=== PATIENT | female | born 2000 | race Caucasian/White ===

== ENCOUNTER 2020-03-17 11:59 | Day surgery (SDC) | payer BC, MEDICAID ==
[~2020-03-17] VITALS: Ht 167.6 cm; Wt 59.2 kg
[2020-03-17] VITALS (9 sets, daily range): BP systolic 85–100; BP diastolic 42–62
[2020-03-17] MEDS ORDERED: normal saline 1000ml 1,000 ML IV SCH (12:15)
[2020-03-17 13:22] LABS: BASOPHILS % (AUTO) 0.7 % (0-1); EOSINOPHILS # (AUTO) 0.1 X10'3 (0-0.9); HEMATOCRIT 42.2 % (35.0-45.0); HEMOGLOBIN 14.7 g/dl (12.0-16.0); LYMPHOCYTES # (AUTO) 1.6 X10'3 (1.1-4.8); MEAN CORPUSCULAR HEMOGLOBIN 31.1 PG (27.0-31.0); MEAN CORPUSCULAR HGB CONC 34.8 g/dL (33.0-36.5); MEAN CORPUSCULAR VOLUME 89.4 FL (78-98); MEAN PLATELET VOLUME 7.6 FL (7.4-10.4); MONOCYTES # (AUTO) 0.4 X10'3 (0-0.9); MONOCYTES % (AUTO) 6.6 % (2-12); NEUTROPHILS # (AUTO) 4.3 X10'3 (1.8-7.7); NEUTROPHILS % (AUTO) 66.7 % (42-75); PLATELET COUNT 223 X10'3 (140-440); RED BLOOD COUNT 4.72 X10'6 (4.20-5.60); RED CELL DISTRIBUTION WIDTH 12.8 % (11.5-14.5); WHITE BLOOD COUNT 6.4 X10'3 (4.5-11.0)
[2020-03-17 13:28] LABS: ALBUMIN 4.6 G/DL (3.4-5.0); ANION GAP 10 (8-16); BLOOD UREA NITROGEN 10 MG/DL (7-18); BUN/CREATININE RATIO 13.5 (6.6-38.0); CALCIUM 10.1 MG/DL (8.5-10.1); CHLORIDE 106 MMOL/L (99-107); CREATININE 0.74 MG/DL (0.40-0.90); GLUCOSE 88 MG/DL (70-104); MAGNESIUM 1.9 MG/DL (1.5-2.4); POTASSIUM 3.9 MMOL/L (3.5-5.1); SODIUM 141 MMOL/L (135-145); TOTAL CARBON DIOXIDE 24.8 MMOL/L (24-32); eGFR > 90 ML/MIN
[2020-03-17] MEDS ORDERED: vancomycin 1,000mg inj ONE (13:39)
[2020-03-17] MEDS ORDERED: proCHLORperazine 10 MG/2 ml inj ONE (13:39)
[2020-03-17] MEDS ORDERED: fentaNYL/PF 50MCG/1 ML 2ML syringe ONE ×2 (13:39→14:02)
[2020-03-17] MEDS ORDERED: midazolam 2 mg/2 ml injection ONE ×4 (13:39→14:44)
[2020-03-17] MEDS ORDERED: ceFAZolin 1000mg inj ONE (13:40)
[2020-03-17] MEDS ORDERED: LIDOcaine 1% W/epiNEPHrine 1:100,000 20ml vial ONE ×2 (13:40→14:12)
[2020-03-17] MEDS ORDERED: metoprolol tartrate 1mg/ml inj IV ONE ×3 (14:26→14:43)
== END 2020-03-17 17:30 | disposition home or self-care (01) ==
LOC: SSTAY O 11:59 → MED 3N 12:05 → SSTAY O 17:30
PROVIDERS: ATTEND Internal Medicine Cardiovascular Disease
DX: I44.2 Atrioventricular block, complete (principal); Z72.89 Other problems related to lifestyle
CPT/HCPCS: 33208; 36415; 71045; 80048; 83735; 85025; 85610; 93005; 99152; 99153; C1785; C1894; C1898; J0690; J0780; J2250; J3010; J3370; J7030; A4565; A4620; J3490

== ENCOUNTER 2024-07-08 16:15 | Outpatient (CLI) | payer MEDICAID | END 2024-07-08 23:59 | disposition home or self-care (01) | LOC: RAD 16:15 | PROVIDERS: ATTEND Family Medicine | DX: O09.291 Supervision of pregnancy with other poor reproductive or obstetric history, first trimester (principal); N91.2 Amenorrhea, unspecified; Z3A.01 Less than 8 weeks gestation of pregnancy | CPT/HCPCS: 76801 ==

== ENCOUNTER 2025-05-06 10:53 | Day surgery (SDC) | payer MEDICAID ==
[2025-05-06] VITALS (11 sets, daily range): BP systolic 104–119; BP diastolic 60–75; PULSE 59–91; RESP 9–16; TEMP 98.6; O2SAT 98–100
[~2025-05-06] VITALS: Ht 170.2 cm; Wt 98.4 kg
[~2025-05-06 10:53] MED LIST: ACET-1008 PO; OMEP20CA16 PO; PRENATAL VITAMIN PO; famotidine 20mg tablet PO ONE; ringers solution, lacted 1,000 ML IV SCH
[2025-05-06] MEDS ORDERED: cloNIDine hcl/PF 100mcg/ml inj ONE (11:48)
[2025-05-06] MEDS: ceFAZolin 2gm/dext,iso 50mL 50 ML IV ONE (11:48)
[2025-05-06] MEDS ORDERED: HYDROmorphone/PF 0.2 MG/ML SYRINGE IV PRN ×2 (11:50)
[2025-05-06] MEDS ORDERED: morphine 2 MG/ML inj. syringe IV PRN (11:50)
[2025-05-06] MEDS ORDERED: morphine 4 MG/ML inj SYRINge IV PRN (11:50)
[2025-05-06] MEDS ORDERED: meperidine/PF 25mg/ml syringe IV PRN (11:50)
[2025-05-06] MEDS ORDERED: proCHLORperazine 10 MG/2 ml inj IV PRN (11:50)
[2025-05-06] MEDS ORDERED: ondansetron/PF 4mg/2ml inj IV PRN (11:50)
[2025-05-06] MEDS ORDERED: hydrALAZINE 20mg/ml inj. IV PRN (11:50)
[2025-05-06] MEDS ORDERED: labetalol 20mg/4ml (5mg/ml) syringe IV PRN (11:50)
[2025-05-06] MEDS ORDERED: bacitracin 15gm ointment TP ONE (11:58)
[2025-05-06] MEDS ORDERED: BUPIVAcaine 2.5mg/ml inj 50ml vial (contains preservative) ONE (11:58)
[2025-05-06 12:06] LABS: HCG SERUM QL NEGATIVE
[2025-05-06] MEDS ORDERED: midazolam 1 mg/ML 2ml injection ONE (13:34)
[2025-05-06] MEDS ORDERED: LIDOcaine 2% (20mg/ml) 5ml vial ONE (14:02)
[2025-05-06] MEDS ORDERED: 0.9 % SODIUM CHLORIDE 10 ML VIAL ONE (14:02)
[2025-05-06] MEDS ORDERED: propofol inj 20 ML IV ONE (14:02)
[2025-05-06] MEDS ORDERED: fentaNYL /PF 50mcg/ml 5ml ampule ONE (14:02)
[2025-05-06] MEDS ORDERED: ROPIVAcaine 0.5% (5mg/ml) 30ml vial ONE (14:02)
[2025-05-06] MEDS ORDERED: dexamethasone sod phosphate 4mg/ml inj. ONE ×2 (14:03→14:06)
[2025-05-06] MEDS ORDERED: ceFAZolin 1000mg inj ONE (14:05)
[2025-05-06] MEDS ORDERED: sevoflurane 250ml liquid IH ONE (14:05)
[2025-05-06] MEDS ORDERED: ondansetron/PF 4mg/2ml inj ONE (14:13)
[2025-05-06] MEDS: acetaminophen 1,000mg/100ml IV 100 ML IV PRN (15:47)
[2025-05-06] MEDS: ringers solution, lacted 1,000 ML IV SCH (15:52)
== END 2025-05-06 16:29 | disposition home or self-care (01) ==
LOC: PAS 10:53
PROVIDERS: ATTEND Podiatrist Foot & Ankle Surgery
DX: M25.371 Other instability, right ankle (principal); M25.471 Effusion, right ankle; S93.491A Sprain of other ligament of right ankle, initial encounter; X58.XXXA Exposure to other specified factors, initial encounter; Y93.89 Activity, other specified; Y92.89 Other specified places as the place of occurrence of the external cause; Y99.8 Other external cause status; Z79.899 Other long term (current) drug therapy; G89.18 Other acute postprocedural pain; Z98.890 Other specified postprocedural states; Z79.82 Long term (current) use of aspirin
CPT/HCPCS: 27620; 27695; 29895; 36415; 64445; 64447; 73600; 82948; 84703; A6222; C1713; J0131; J0690; J0735; J1100; J2003; J2250; J2405; J2704; J2795; J3010; J7120; Z7506; Z7508; Z7512; 76000; A4618; A6449; A7000; J3490